=== PATIENT | male | born 1985 | race American Indian/Alaskan Native ===

== ENCOUNTER 2016-09-26 15:50 | Emergency (ER) | payer SELFPAY ==
[2016-09-26] MEDS ORDERED: NACL 0.9% 1000 ML 1,000 ML IV ONE (16:47)
--- NOTE | 2016-09-26 16:50 | Emergency Department Report ---
Stated Complaint: RECKTAL BLEEDING/ABD PAIN/FATIGUE Time Seen by Provider: 09/26/16 16:45 - HPI History of Present Illness: 31 yo male presents to ED c/o rectal bleed and abd pain x 5 years. pt states symptoms have gotten worse. Patient states he has bleed with every bowel movement daily. Patient states symptoms are loose. Patient states generalized abdominal pain. Patient unable to rate his pain. Patient states he took 2 gabapentin once prior to coming to ED. When asked when he got to gabapentin he said his mom gives at times. She sitting on the sensitivity Tylenol with codeine and that helps with the pain. Patient denies history of hemorrhoids Patient denies nausea/vomiting/fever/chills/chest pain/shortness of breath as abdominal pain. - ROS Review of Systems: as noted in HPI - Exam Vital Signs: Vital Signs 09/26/16 16:38 Temperature 97.3 F L Pulse Rate 51 L Respiratory 17 Rate Blood Pressure 121/69 O2 Sat by Pulse 100 Oximetry Physical Exam: GENERAL: Alert and oriented x3, no apparent distress, Normal Gait, atraumatic. EYES: Extra ocular muscles are intact. Pupils are equal, round, and reactive to light and accommodation. LUNGS: Symetrical with respiration, No wheezing, no rales or crackles, CTAB. HEART: S1, S2 present, regular rate and rhythm without murmur, no rubs, no gallops. ABDOMEN: No organomegaly was noted,Positive bowel sounds, soft, and non- distended. . Nontender to palpation on all Quadrants, NO CVA tenderness. SKIN: Warm and dry, No lesions, No ulceration or induration present. MSE screening note: Focused history and physical exam performed. Due to findings the following was ordered: ED Medical Decision Making - Medical Decision Making GI bleed protocol ordered. Patient to be sent by ED physician. ED Disposition for MSE Condition: Stable
[2016-09-26 17:20] LABS: Urine Drugs of Abuse Note Disclamer
[2016-09-26 17:23] LABS: Basophils % (Auto) 0.9 % (0.0-1.8); Eosinophils % (Auto) 0.8 % (0.0-4.3); Hematocrit 43.7 % (35.5-45.6); Hemoglobin 14.2 gm/dl (11.8-15.2); Mean Corpuscular HGB Conc 33 % (32-34); Mean Corpuscular Hemoglobin 28 pg (28-32); Mean Corpuscular Volume 85 fl (84-94); Platelet Count 173 K/mm3 (140-440); Red Blood Count 5.16 M/mm3 (3.65-5.03); Red Cell Distribution Width 14.9 % (13.2-15.2); White Blood Count 4.9 K/mm3 (4.5-11.0)
[2016-09-26 17:33] LABS: INR 1.08 (0.87-1.13)
[2016-09-26 17:34] LABS: Partial Thromboplastin Time 31.4 Sec. (24.2-36.6)
[2016-09-26 17:40] LABS: Bilirubin,Urine NEG (Negative); Blood,Urine NEG (Negative); Ketones,Urine NEG (Negative); Leukocyte Esterase,Urine NEG (Negative); Mucus,Urine FEW /HPF; Nitrite,Urine NEG (Negative); Protein,Urine <15 mg/dL mg/dL (Negative)
[2016-09-26 17:42] LABS: Alanine Aminotransferase 18 units/L (7-56); Albumin/Globulin Ratio 1.7 %; Alkaline Phosphatase 48 units/L (35-129); Anion Gap 14 mmol/L; Blood Urea Nitrogen 8 mg/dL (9-20); Calcium 9.1 mg/dL (8.4-10.2); Carbon Dioxide 27 mmol/L (22-30); Chloride 104.1 mmol/L (98-107); Glucose 54 mg/dL (75-100); Lipase 28 units/L (13-60); Potassium 3.9 mmol/L (3.6-5.0); Sodium 141 mmol/L (137-145); Total Protein 6.4 g/dL (6.3-8.2)
[2016-09-26] MEDS ORDERED: MORPHINE IV ONE (22:11)
[2016-09-26] MEDS ORDERED: ZOFRAN IV ONE (22:11)
[2016-09-26] MEDS ORDERED: MORPHINE ONE (22:19)
[2016-09-26] MEDS ORDERED: NACL ONE (22:19)
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
--- NOTE | 2016-09-26 23:01 | Cat Scan Report ---
FINAL REPORT EXAM: CT ABDOMEN PELVIS W CON HISTORY: right-sided abdominal pain, hematochezia TECHNIQUE: Spiral CT scanning of the abdomen and pelvis after the uneventful administration of IV contrast. Multiplanar reformations. 100 mL Omnipaque IV. PRIORS: None. FINDINGS: Abdomen: Visualized lung bases grossly unremarkable. No radiopaque gallstones. Liver without significant abnormality. Spleen without significant abnormality. Pancreas without significant abnormality. Kidneys without significant abnormality. Adrenal glands without significant abnormality. Pelvis: Bowel grossly unremarkable. Appendix within normal limits. No significant free peritoneal fluid or apparent adenopathy. Abdominal aorta non-aneurysmal. IMPRESSION: 1. No acute findings.
[2016-09-27] VITALS: BP 122/78
== END 2016-09-26 23:30 | disposition home or self-care (01) ==
LOC: ED 15:50
DX: K92.1 Melena (principal); K62.89 Other specified diseases of anus and rectum; R56.9 Unspecified convulsions; D64.9 Anemia, unspecified; F17.200 Nicotine dependence, unspecified, uncomplicated; F12.10 Cannabis abuse, uncomplicated; Z91.013 Allergy to seafood; Z88.8 Allergy status to other drugs, medicaments and biological substances
CPT/HCPCS: 36415; 74177; 80053; 80307; 81001; 82271; 83690; 85025; 85610; 85730; 86850; 86900; 86901; 96361; 96374; 96375; 99285; J2270; J2405; J7030; Q9967

== ENCOUNTER 2016-10-02 17:24 | Emergency (ER) | payer SELFPAY ==
[2016-10-02] MEDS ORDERED: NACL 0.9% 1000 ML 1,000 ML IV ONE (17:34)
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
[2016-10-02 18:25] LABS: Urine Drugs of Abuse Note Disclamer
[2016-10-02] MEDS ORDERED: ACTIDOSE-AQUA PO ONE (18:25)
[2016-10-02 18:37] LABS: Basophils % (Auto) 0.6 % (0.0-1.8); Eosinophils % (Auto) 0.3 % (0.0-4.3); Hematocrit 45.3 % (35.5-45.6); Hemoglobin 15.1 gm/dl (11.8-15.2); Mean Corpuscular HGB Conc 33 % (32-34); Mean Corpuscular Hemoglobin 28 pg (28-32); Mean Corpuscular Volume 84 fl (84-94); Platelet Count 169 K/mm3 (140-440); Red Blood Count 5.37 M/mm3 (3.65-5.03); White Blood Count 5.8 K/mm3 (4.5-11.0)
[2016-10-02 18:42] LABS: Bilirubin,Urine NEG (Negative); Blood,Urine NEG (Negative); Ketones,Urine NEG (Negative); Leukocyte Esterase,Urine NEG (Negative); Mucus,Urine FEW /HPF; Nitrite,Urine NEG (Negative); Protein,Urine <15 mg/dL mg/dL (Negative); RBC,Urine < 1.0 /HPF (0.0-6.0); Urobilinogen,Urine < 2.0 mg/dL (<2.0)
[2016-10-02 19:03] LABS: Alanine Aminotransferase 20 units/L (7-56); Albumin 4.3 g/dL (3.9-5); Albumin/Globulin Ratio 1.7 %; Alkaline Phosphatase 50 units/L (35-129); Anion Gap 19 mmol/L; BUN/Creatinine Ratio 7.77; Bilirubin,Total 0.8 mg/dL (0.1-1.2); Blood Urea Nitrogen 7 mg/dL (9-20); Calcium 9.1 mg/dL (8.4-10.2); Carbon Dioxide 23 mmol/L (22-30); Chloride 102.8 mmol/L (98-107); Glucose 83 mg/dL (75-100); Potassium 4.3 mmol/L (3.6-5.0); Sodium 140 mmol/L (137-145); Total Protein 6.8 g/dL (6.3-8.2)
--- NOTE | 2016-10-03 09:59 | Consultation ---
History of Present Illness - Reason for Consult Consult date: 10/03/16 Reason for consult: Mental Health Evaluation - Chief Complaint Chief complaint: "I was overwhelmed" - History of Present Psychiatric Illness This is a 31-year-old Afro-Bhut[place] male presents to the emergency department from home via ED with complaint of overdose. Today patient is calm and cooperative during discussion. He says he took a combination of tylenol, gabapentin, and tramadol (8 to 11 pills) because of the overwhelming stress. He states that he is overwhelmed with issues surrounding his current girlfriend and his daughter's mom who is located in [place]. Also, his current girlfriend had a miscarriage 5 months ago. He feels that the girlfriend is putting a lot of unwanted stress on him. She currently is unemployed. He stated , "She works sometimes." The sporadic finances has caused some "anxiety" for the patient. He stated that his current girlfriend kept telling him to "kill himself" multiple times, so he decide to take the pills. He denies any other attempts at self harm. He denies SI/AVH's. Medications and Allergies Allergies Allergy/AdvReac Type Severity Reaction Status Date / Time shellfish derived Allergy Swelling Verified 09/26/16 16:36 guaifenesin [From Robitussin] AdvReac Itching Verified 09/26/16 16:36 Home Medications Medication Instructions Recorded Confirmed Last Taken Type Gabapentin [Neurontin] 300 mg PO BID PRN 11/22/15 10/03/16 10/02/16 History Ibuprofen [Motrin 800 MG tab] 800 mg PO Q8HR PRN #20 tablet 11/22/15 10/03/16 Rx methOCARBAMOL [Robaxin TAB] 500 mg PO BID #10 tab 11/22/15 10/03/16 10/02/16 Rx traMADol [Ultram 50 MG tab] 50 mg PO Q6H PRN #20 tablet 11/22/15 10/03/16 Rx Docusate Sodium [Colace] 100 mg PO BID PRN #60 capsule 09/26/16 10/03/16 Rx Past psychiatric history - Past Medical History Past Medical History: other (Back pain, Anemia) Past Surgical History: No surgical history - past Psychiatric treatment and history psychiatric treatment history: Denies a psy hx. Also denies a fam hx of psy.. - Social History Social history: other (HS, some college, 1 child) Mental Status Exam - Vital signs Last Vital Signs Temp 98.9 F 10/03/16 04:00 Pulse 55 L 10/03/16 05:00 Resp 18 10/03/16 05:00 BP 106/75 10/03/16 05:00 Pulse Ox 100 10/03/16 05:00 - Exam Narrative exam: ROS (-) depression, (-) psychosis, (-) SI/HI's Orientation: time, place, person Affect: normal Mood: appropriate Thought content: other (None) Thought Process: Intact Perceptions: none Speech: normal rate and pattern Concentration: other (Intact) Motor activity: other (Sitting up in bed) Level of consciousness: alert Memory: Intact Sleep Symptoms: None Interaction: cooperative Results Result Diagrams: 10/02/16 18:20 10/02/16 18:20 Abnormal lab results 10/02/16 10/02/16 10/02/16 Range/Units 18:20 18:20 18:20 RBC 5.37 H (3.65-5.03) M/mm3 [place] % (Auto) 11.8 H (0.0-7.3) % Lymph # 1.1 L (1.2-5.4) K/mm3 BUN 7 L (9-20) mg/dL Salicylates < 0.3 L (2.8-20.0) mg/dL All other labs normal. Assessment and Plan Assessment and plan: I. This screening and assessment is based on information collected from the following sources: patient and his significant other II. SUICIDE RISK SCREENING (within last 30 days): A.) Suicidal thoughts/behaviors: recent reported overdose on tylenol, gabapentin , and tramadol (8 to 11 pills) SUICIDE RISK ASSESSMENT III. FACTORS THAT INCREASE RISK: Severe depressive symptoms A.) Demographic and Substance Use Factors: B.) Current/Recent Factors (within past 3 months): Psychosocial/Environmental Factors: Physical Illness: Back pain Cognitive/Psychological Factors: Currently unemployed C.) Historical Factors: none reported by the patient D.) Diagnostic/Symptom/Treatment Factors: likely MDD single episode E.) Acute Risk Factor Severity no acute risk factors noted IV. FACTORS THAT DECREASE RISK: Resilience/Protective Factors: his mother and child who live in [place] V. Clinician's Formulation of Risk and Determination of level of Care: This is a 31 year old black male who is currently unemployed and resides with his girlfriend. The girlfriend recently had a miscarriage and do not work. The patient is the sole provider for the family. Per conversation with his mother, this relationship had been "toxic" for both parties. She states that she have offered him to move back home for support. Patient stated that he felt overwhelmed and decided to take tylenol, gabapentin, and tramadol (8 to 11 pills ), because the girlfriend stated, "You should kill yourself." He just wanted it "to be over." At this current time, the patient is regretting making the decision to take the pills. He further notes that he may have a new job soon and he will not move back with the girlfriend. He plan to seek counseling in the future to help cope with stressors. Estimation of Imminent Risk: Low Determination of Level of Care based on Suicide Risk: Intensive outpatient or outpatient therapy Narrative description of clinical reasoning: Given the fact that the patient is willing to engage in outpatient care and has a supportive network (mother), it is reasonable to expect that the patient will seek services. Furthermore, the patient appears future oriented and denies that his intention was to end his life. He is regretful of the decision and has several things in his life to look forward to. At this current time, he is not impulsive and does not have any risk factors to increase the likelihood of his impulsive behavior. Therefore , it is reasonable to expect that the patient will engage in outpatient services which will reduce further unsafe behaviors. . Plan and Interventions based on Suicide Risk: Refer to outpatient services and intensive outpatient services VII. Discharge/After Hours Support Plan: Patient will be provided with a 24- hour hotline that he can call and local outpatient services information in his area. Impression: Patient calm and cooperative today during discussion. He took tylenol, gabapentin, and tramadol (8 to 11 pills) because of "overwhelming" family dynamic stressors. Patient denies any other attempt of self harm in the past. Patient denies SI/HI's or AVH's. Positive for marijuana. Recommendation: Continue 1013 with possible placement to inpatient psy services or outpatient services. Discussed generalized coping skill with patient.
[2016-10-03] MEDS ORDERED: MOTRIN PO PRN (13:17)
[2016-10-03 16:08] VITALS: BP 103/72
--- NOTE | 2016-10-03 18:55 | Emergency Department Report ---
Blank Doc - Documentation Documentation: Vital Signs - 24 hr 10/02/16 10/02/16 10/02/16 19:00 20:00 21:00 Temperature 98.8 F Pulse Rate 64 65 74 Respiratory 15 18 18 Rate Blood Pressure 122/64 121/83 132/71 [Right] O2 Sat by Pulse 98 99 99 Oximetry 10/02/16 10/02/16 10/03/16 22:00 23:00 00:00 Temperature 98.2 F Pulse Rate 74 73 64 Respiratory 16 18 18 Rate Blood Pressure 142/79 143/74 116/49 [Right] O2 Sat by Pulse 99 100 100 Oximetry 10/03/16 10/03/16 10/03/16 01:00 02:00 03:00 Temperature Pulse Rate 69 57 L 58 L Respiratory 18 18 18 Rate Blood Pressure 116/53 104/38 100/49 [Right] O2 Sat by Pulse 99 99 100 Oximetry 10/03/16 10/03/16 10/03/16 04:00 05:00 13:00 Temperature 98.9 F 98.5 F Pulse Rate 54 L 55 L 58 L Respiratory 18 18 18 Rate Blood Pressure 107/44 106/75 103/72 [Right] O2 Sat by Pulse 100 100 98 Oximetry Vital signs reviewed. No events reported. Awaiting placement
== END 2016-10-03 19:11 ==
LOC: ED 17:24 → EEVIPCON 17:24 → ED 10-03 19:11
DX: T39.1X2A Poisoning by 4-Aminophenol derivatives, intentional self-harm, initial encounter (principal); T40.4X2A Poisoning by other synthetic narcotics, intentional self-harm, initial encounter; R56.9 Unspecified convulsions; Y92.89 Other specified places as the place of occurrence of the external cause
CPT/HCPCS: 36415; 80053; 80307; 81001; 84484; 85025; 93005; 93010; 96360; 99285; G0480; J7030; 80320

== ENCOUNTER 2017-01-22 07:06 | Emergency (ER) | payer SELFPAY ==
[2017-01-22] MEDS ORDERED: MARCAINE 0.5% INFILTRATI ONE (11:23)
[2017-01-22] MEDS ORDERED: TORADOL IM ONE (11:23)
[2017-01-22] MEDS ORDERED: BOOSTRIX IM ONE (11:23)
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
[2017-01-22 13:19] VITALS: BP 122/73
== END 2017-01-22 13:19 | disposition home or self-care (01) ==
LOC: ED 07:06
DX: H60.02 Abscess of left external ear (principal); Z91.013 Allergy to seafood; Z88.8 Allergy status to other drugs, medicaments and biological substances; R56.9 Unspecified convulsions; D64.9 Anemia, unspecified; F17.200 Nicotine dependence, unspecified, uncomplicated
CPT/HCPCS: 69000; 90471; 90715; 96372; 99282; J1885

== ENCOUNTER 2017-07-10 14:30 | Emergency (ER) | payer SELFPAY | END 2017-07-10 16:00 | disposition left against medical advice (07) | LOC: ED 14:30 | DX: R52 Pain, unspecified (principal); Z53.21 Procedure and treatment not carried out due to patient leaving prior to being seen by health care provider ==